=== PATIENT | female | born 1975 | race Asian ===

== ENCOUNTER 2018-04-17 08:28 | Day surgery (SDC) | payer OTHER ==
[~2018-04-17] VITALS: Ht 152.4 cm; Wt 54.5 kg
[~2018-04-17 08:28] MED LIST: IBUP200C5 PO
[2018-04-17] MEDS ORDERED: RINGERS SOLUTION,LACTATED 1,000 ML IV ONE ×2 (08:30→08:32)
[2018-04-17 08:52] LABS: BASOPHILS % (AUTO) 1.2 % (0.0-2.0); EOSINOPHILS % (AUTO) 2.1 % (1.0-6.0); HEMATOCRIT 45.3 % (36-46); HEMOGLOBIN 15.7 g/dL (12.0-16.0); LYMPHOCYTES # (AUTO) 2.8 K/uL (1.0-4.8); LYMPHOCYTES % (AUTO) 27.2 % (22.0-44.0); MEAN CORPUSCULAR HEMOGLOBIN 31.3 pg (26.0-34.0); MEAN CORPUSCULAR HGB CONC 34.6 G/dL (31.0-37.0); MEAN CORPUSCULAR VOLUME 91 fL (80-100); MONOCYTES # (AUTO) 0.6 K/uL (0.1-1.0); MONOCYTES % (AUTO) 5.4 % (2.0-9.0); NEUTROPHILS # (AUTO) 6.7 K/uL (1.8-7.7); NEUTROPHILS % (AUTO) 64.1 % (40.0-70.0); PLATELET COUNT (AUTO) 318 K/uL (150-450); RED CELL DISTRIBUTION WIDTH 12.9 % (11.5-14.5)
[2018-04-17 08:59] LABS: ANION GAP 9 mmol/L (8-16); CARBON DIOXIDE 28 mmol/L (22-29); CHLORIDE 104 mmol/L (98-107); CREATININE 0.64 mg/dL (0.60-1.30); GLOMERULAR FILTR. RATE CALC > 60 mL/min (>60); GLUCOSE,RANDOM 101 mg/dL (70-110); POTASSIUM 3.7 mmol/L (3.5-5.1); SODIUM SERUM 141 mmol/L (136-145); UREA NITROGEN, BLOOD 12 mg/dL (7-18)
[2018-04-17] MEDS ORDERED: FentaNYL CITRATE-PF 100 MCG/2 ML VIAL IVP PRN (09:45)
[2018-04-17] MEDS ORDERED: ACETAMINOPHEN 1000 MG/ISO-OSM 100 ML IV ONE (09:45)
[2018-04-17] MEDS ORDERED: MIDAZOLAM HCL 5 MG/ML VIAL IVP PRN (09:45)
[2018-04-17] MEDS ORDERED: MEPERIDINE HCL/PF 25 MG/0.5 ML AMP IVP PRN (09:45)
[2018-04-17] MEDS ORDERED: ONDANSETRON HCL 4 MG/2 ML VIAL IVP PRN (09:45)
[2018-04-17] MEDS ORDERED: SILVER NITRATE APPLICATOR 1 EA STICK TP ONE (10:08)
[2018-04-17] MEDS ORDERED: CYCL10 PO (11:57)
[2018-04-17] MEDS ORDERED: FLUC150T66 PO (11:57)
[2018-04-17] MEDS ORDERED: MIDAZOLAM HCL 2 MG/2 ML VIAL IVP ONE (12:00)
[2018-04-17] MEDS ORDERED: ONDANSETRON HCL 4 MG/2 ML VIAL IVP ONE (12:00)
[2018-04-17] MEDS ORDERED: FentaNYL CITRATE-PF 100 MCG/2 ML VIAL IVP ONE (12:00)
[2018-04-17] MEDS ORDERED: LIDOCAINE HCL/PF 2% 5 ML VIAL INJ ONE (12:00)
== END 2018-04-17 12:50 | disposition home or self-care (01) ==
LOC: SURGERY 08:28
PROVIDERS: ATTEND Obstetrics & Gynecology
DX: D06.0 Carcinoma in situ of endocervix (principal); N72 Inflammatory disease of cervix uteri; G43.909 Migraine, unspecified, not intractable, without status migrainosus; Z90.49 Acquired absence of other specified parts of digestive tract; Z79.891 Long term (current) use of opiate analgesic; Z79.1 Long term (current) use of non-steroidal anti-inflammatories (NSAID); Z88.5 Allergy status to narcotic agent; Z79.899 Other long term (current) drug therapy; Z98.890 Other specified postprocedural states
CPT/HCPCS: 36415; 57522; 80048; 84703; 85025; 88305; 88307; 88342; J0690; J2250; J2405; J3010; J3490; J7120; 88300; 88341

== ENCOUNTER 2019-11-04 18:36 | Emergency (ER) | payer OTHER ==
[~2019-11-04] VITALS: Ht 152.4 cm; Wt 56.8 kg
[2019-11-04] MEDS ORDERED: DiphenhydrAMINE HCL 50 MG/ML VIAL IVP STA (21:04)
[2019-11-04] MEDS ORDERED: SODIUM CHLORIDE 0.9% 1,000 ML IV ONE (21:15)
[2019-11-04] MEDS ORDERED: METOCLOPRAMIDE HCL 5 MG/ML 2 ML VIAL IVP ONE (21:15)
[2019-11-04] MEDS ORDERED: KETOROLAC TROMETHAMINE 30 MG/ML VIAL IVP ONE (21:15)
[2019-11-04 22:41] VITALS: BP 133/77
== END 2019-11-04 23:11 | disposition home or self-care (01) ==
LOC: EMS 18:37
DX: G43.909 Migraine, unspecified, not intractable, without status migrainosus (principal); Z90.49 Acquired absence of other specified parts of digestive tract; Z88.5 Allergy status to narcotic agent; Z98.890 Other specified postprocedural states
CPT/HCPCS: 96374; 96375; 99283; J1200; J1885; J2765; J7030

== ENCOUNTER 2023-10-05 11:30 | Emergency (ER) | payer OTHER ==
[~2023-10-05] VITALS: Ht 154.9 cm; Wt 56.8 kg
[2023-10-05 11:30] VITALS: TEMP 98.3
[2023-10-05] MEDS ORDERED: KETOROLAC TROMETHAMINE 30 MG/ML VIAL IVP ONE (13:00)
[2023-10-05] MEDS ORDERED: METOCLOPRAMIDE HCL 5 MG/ML 2 ML VIAL IVP ONE (13:00)
[2023-10-05] MEDS ORDERED: SODIUM CHLORIDE 0.9% 500 ML IV ONE (13:00)
[2023-10-05] MEDS ORDERED: DiphenhydrAMINE HCL 50 MG/ML VIAL IVP ONE (13:00)
[2023-10-05] MEDS ORDERED: IBUP-1492 PO (14:21)
[2023-10-05] MEDS ORDERED: ONDA-104 PO (14:22)
[2023-10-05 14:25] VITALS: BP 139/89; PULSE 83; RESP 18
== END 2023-10-05 14:31 | disposition home or self-care (01) ==
LOC: EMS 11:30
DX: G43.909 Migraine, unspecified, not intractable, without status migrainosus (principal); Z90.49 Acquired absence of other specified parts of digestive tract; Z98.890 Other specified postprocedural states; Z88.6 Allergy status to analgesic agent
CPT/HCPCS: 99284; 96374; 96375; 96361; J1200; J1885; J2765; J7040

== ENCOUNTER 2024-04-01 16:04 | Emergency (ER) | payer OTHER ==
[~2024-04-01] VITALS: Ht 152.4 cm; Wt 56.4 kg
[~2024-04-01 16:04] MED LIST changes: +IBUP-1492 PO; -IBUP200C5 PO; +ONDA-104 PO
[2024-04-01 16:15] VITALS: BP 149/89; PULSE 82; RESP 18; TEMP 98.5
[2024-04-01] MEDS ORDERED: DILT60CA PO (16:17)
[2024-04-01] MEDS ORDERED: ASCO100031 PO (16:17)
[2024-04-01] MEDS ORDERED: LOSA-382 PO (16:17)
[2024-04-01] MEDS ORDERED: EMPA10TA3 PO (16:17)
[2024-04-01] MEDS ORDERED: FINE10TA PO (16:17)
[2024-04-01] MEDS ORDERED: ATOR20TA65 PO (16:17)
== END 2024-04-01 17:35 | disposition left against medical advice (07) ==
LOC: EMS 16:07
DX: M25.552 Pain in left hip (principal); Z53.21 Procedure and treatment not carried out due to patient leaving prior to being seen by health care provider

== ENCOUNTER 2025-02-19 23:53 | Emergency (ER) | payer OTHER ==
[~2025-02-19] VITALS: Ht 152.4 cm; Wt 50.5 kg
[~2025-02-19 23:53] MED LIST changes: +ASCO100031 PO; +ATOR20TA65 PO; +DILT60CA PO; +EMPA10TA3 PO; +FINE10TA PO; -IBUP-1492 PO; +LOSA-382 PO; -ONDA-104 PO
[2025-02-20 00:48] VITALS: BP 132/74; PULSE 75; RESP 16; TEMP 98.1; O2SAT 100
[2025-02-20] MEDS ORDERED: BACI28.410 TP (01:09)
[2025-02-20] MEDS ORDERED: ACET-66 PO (01:09)
[2025-02-20] MEDS ORDERED: CEPH-558 PO (01:09)
[2025-02-20] MEDS: HYDROGEN PEROXIDE 118 ML SOLUTION TP ONE (01:36)
[2025-02-20] MEDS: ACETAMINOPHEN 500 MG TABLET PO ONE (01:37)
[2025-02-20] MEDS: BACITRACIN 0.9 GM PACKET OINTMENT TP ONE (01:37)
[2025-02-20] MEDS: PERTUSS(ACELL),DIPH,TET/PF 0.5 ML SYRINGE [ADULT] IM. ONE (01:37)
== END 2025-02-20 01:38 | disposition home or self-care (01) ==
LOC: EMS 23:53
DX: S61.452A Open bite of left hand, initial encounter (principal); N02.B1 Recurrent and persistent immunoglobulin A nephropathy with glomerular lesion; I10 Essential (primary) hypertension; G43.909 Migraine, unspecified, not intractable, without status migrainosus; Z79.899 Other long term (current) drug therapy; Z90.49 Acquired absence of other specified parts of digestive tract; Z88.5 Allergy status to narcotic agent; W54.0XXA Bitten by dog, initial encounter; Y93.89 Activity, other specified; Y92.89 Other specified places as the place of occurrence of the external cause; Y99.8 Other external cause status
CPT/HCPCS: 90471; 90715; 99284